=== PATIENT | female | born 1980 | race Two or more races ===

== ENCOUNTER 2022-06-11 11:15 | Emergency (ER) | payer MEDICAID ==
[~2022-06-11] VITALS: Ht 172.7 cm; Wt 96.0 kg
[2022-06-11 11:30] VITALS: BP 123/80
[2022-06-11 12:33] LABS: BASOPHILS % 0.5 % (0.0-2.0); EOSINOPHILS % 1.5 % (0.0-5.0); HEMATOCRIT. 35.6 % (36.0-48.0); HEMOGLOBIN. 11.6 g/dL (12.0-16.0); LYMPHOCYTES % 13.5 % (20.0-50.0); MEAN CORPUSCULAR HEMOGLOBIN 27.1 pg (28.0-32.0); MEAN CORPUSCULAR VOLUME 82.9 fL (81.0-99.0); MEAN PLATELET VOLUME 8.4 fl (7.4-10.4); MONOCYTES % 7.1 % (2.0-8.0); NEUTROPHILS % 77.4 % (40.0-76.0); PLATELET 219 x1000/uL (130-400); RED BLOOD CELL COUNT 4.29 mill/uL (4.2-5.4); RED CELL DISTRIBUTION WIDTH 14.5 % (11.6-14.6)
[2022-06-11 12:43] LABS: CHLORIDE 109 mEq/L (98-107)
[2022-06-11 12:57] LABS: HCG SCREEN NEGATIVE
[2022-06-11 13:01] LABS: ETHANOL BLOOD < 10 mg/dL
[2022-06-11 14:12] LABS: CLARITY URINE CLEAR (CLEAR); COLOR URINE YELLOW (YELLOW); KETONES URINE TRACE (NEGATIVE); LEUKOCYTE ESTERASE URINE NEGATIVE (NEGATIVE); NITRITE URINE NEGATIVE (NEGATIVE); OCCULT BLOOD URINE NEGATIVE (NEGATIVE); PH URINE 5.5 (4.5-8.0); PROTEIN URINE TRACE (NEGATIVE); SPECIFIC GRAVITY URINE 1.023 (1.005-1.030)
[2022-06-11 14:48] LABS: *BARBITURATES SCREEN URINE NEGATIVE (NEGATIVE); *BENZODIAZEPINES SCREEN URINE NEGATIVE (NEGATIVE); METHADONE URINE SCREEN NEGATIVE (NEGATIVE); OPIATES URINE SCREEN NEGATIVE (NEGATIVE)
[2022-06-11 14:54] LABS: *AMPHETAMINES SCREEN URINE PRESUMTIVE POSITIVE (NEGATIVE); *COCAINE SCREEN URINE PRESUMTIVE POSITIVE (NEGATIVE); CANNABINOID URINE SCREEN PRESUMTIVE POSITIVE (NEGATIVE); PHENCYCLIDINE URINE SCREEN PRESUMTIVE POSITIVE (NEGATIVE)
[2022-06-11 16:51] LABS: HEPATITIS B SURFACE ANTIGEN NEGATIVE
[2022-06-13 08:07] LABS: HIV SCREEN 4G Non Reactive (Non Reactive)
== END 2022-06-11 13:30 | disposition left against medical advice (07) ==
LOC: EDBD 11:15 → ER 11:15
DX: R41.82 Altered mental status, unspecified (principal); T50.991A Poisoning by other drugs, medicaments and biological substances, accidental (unintentional), initial encounter; Y92.9 Unspecified place or not applicable; I49.8 Other specified cardiac arrhythmias
CPT/HCPCS: 36415; 71045; 80053; 80305; 80307; 80320; 80329; 81003; 83605; 84443; 84484; 84703; 85025; 86705; 86706; 86709; 86803; 87340; 87389; 93005; 99291; G0480

== ENCOUNTER 2022-06-25 18:12 | Emergency (ER) | payer MEDICAID ==
[~2022-06-25] VITALS: Ht 165.1 cm; Wt 91.0 kg
[2022-06-25] MEDS ORDERED: AMLO10TA80 PO (18:39)
[2022-06-25 21:23] LABS: CLARITY URINE CLEAR (CLEAR); COLOR URINE YELLOW (YELLOW); KETONES URINE NEGATIVE (NEGATIVE); LEUKOCYTE ESTERASE URINE NEGATIVE (NEGATIVE); NITRITE URINE NEGATIVE (NEGATIVE); OCCULT BLOOD URINE 1+ (NEGATIVE); PH URINE 5.5 (4.5-8.0); PROTEIN URINE NEGATIVE (NEGATIVE); SPECIFIC GRAVITY URINE 1.026 (1.005-1.030)
[2022-06-25] MEDS ORDERED: DOXY100C5 MT (21:41)
[2022-06-25] MEDS ORDERED: CEFTRIAXONE SODIUM 500 MG/VIAL IM ONE (21:45)
[2022-06-25] MEDS ORDERED: LIDOCAINE HCL/PF 1% 2ML VIAL INFIL ONE (21:45)
[2022-06-25] MEDS ORDERED: FLUCONAZOLE 150MG TABLET PO ONE (21:45)
[2022-06-25 22:03] VITALS: BP 112/78
[2022-06-29 04:08] LABS: NEISSERIA GONORRHOEAE NAA Negative (Negative)
== END 2022-06-25 22:03 | disposition home or self-care (01) ==
LOC: ER 18:12
DX: A64 Unspecified sexually transmitted disease (principal); I11.0 Hypertensive heart disease with heart failure; I50.9 Heart failure, unspecified; Z87.442 Personal history of urinary calculi
CPT/HCPCS: 81003; 87491; 87591; 96372; 99283; J0696; J3490